=== PATIENT | male | born 1995 | race Caucasian/White ===

== ENCOUNTER 2021-08-12 10:10 | Emergency (ER) | payer OTHER, SELFPAY ==
[2021-08-12 10:24] VITALS: BP 142/81; PULSE 107; RESP 18; TEMP 37.1; O2SAT 98
--- NOTE | 2021-08-12 10:27 | ED.URI ---
HPI - URI/Sore Throat General Chief Complaint: Upper Respiratory Infection Stated Complaint: Fever,Headache,Body Aches Time Seen by Provider: 08/12/21 10:26 Source: patient and RN notes reviewed Mode of arrival: ambulatory Limitations: no limitations History of Present Illness HPI Narrative: 26-year-old male presented for complaint of headache, body aches and fever for 3 days. Temp at home up to 103 yesterday. He has had flu vaccine and Covid vaccines this year. He has been taking Alyx-[place] for symptoms. Denies associated sinus pressure/congestion, shortness of breath, wheezing, chest pain, vomiting, diarrhea, dizziness or ear pain. was ill about a week ago, tested negative for Covid. He endorses 3 months ago deviated septum surgery. MD elicited complaint: cough Related Data Home Medications Medication Instructions Recorded Confirmed No Home Medications 08/12/21 08/12/21 Allergies Allergy/AdvReac Type Severity Reaction Status Date / Time amoxicillin [From Amoxil] Allergy Unknown Verified 08/12/21 10:35 Review of Systems Review of Systems: CONSTITUTIONAL: Endorses fever denies malaise EYES: Denies visual changes, redness, or discharge ENT: Endorses swollen lymph node left submandibular, nontender; Denies rhinorrhea, congestion, sinus pain, otalgia, sore throat CARDIOVASCULAR: Denies chest pain, palpitations, edema RESPIRATORY: Denies cough, post nasal drainage, dyspnea GASTROINTESTINAL: Endorses mild nausea, denies abdominal pain, vomiting, diarrhea SKIN: Denies rash or itching MUSCULOSKELETAL: Endorses myalgia NEUROLOGIC: Endorses headache Exam Narrative: GENERAL: Well-appearing, no acute distress. HEAD: Normocephalic EYES: PERRLA, conjunctivae clear ENT: Mucous membranes moist. TM pearly rai with dull light reflex bilaterally; no tragal tenderness. Oropharynx erythematous without lesions or exudate, no drooling, no hoarseness, no trismus, uvula midline. NECK: Supple. No lymphadenopathy CHEST: Clear to auscultation, breath sounds equal. No wheezing, rhonchi, rales, or stridor. No respiratory distress, speaks in full sentences. HEART: Regular rate and rhythm. No murmur heard. SKIN: Warm, dry, no rash. NEURO: Alert and oriented x3. PSYCH: Normal mood and affect Course Course Emergency Course: Patient is aware of diagnosis, understands and agrees to treatment plan. Anticipatory guidance given. Patient agrees to follow-up as directed and is aware of reasons to seek care at the emergency department. Portions of this record may have been created with voice recognition software Level of Care: Express Care Visit Vital Signs Vital signs: Vital Signs Temperature 98.7 F 08/12/21 10:24 Pulse Rate 107 H 08/12/21 10:24 Respiratory Rate 18 08/12/21 10:24 Blood Pressure 142/81 H 08/12/21 10:24 Pulse Oximetry 98 08/12/21 10:24 Temperature 98.7 F 08/12/21 10:24 Pulse Rate 107 H 08/12/21 10:24 Respiratory Rate 18 08/12/21 10:24 Blood Pressure 142/81 H 08/12/21 10:24 Pulse Oximetry 98 08/12/21 10:24 reviewed MDM - URI/Sore Throat Differential Diagnosis Differential diagnosis: Likely upper respiratory infection, sinusitis and viral infection Lab Data Attestation: I reviewed the patient's lab results. Discharge Plan Discharge Clinical Impression: Viral infection Patient Disposition: Home, Self-Care Condition: Stable Instructions: Antibiotic Form, Influenza (ED), Upper Respiratory Infection (ED) Additional Instructions: Tylenol 1000mg every 8 hours as needed for body aches/fever Recommend Over the counter treatments and Zyrtec during the day, you can add Flonase for more severe sinus pressure/congestion Also, recommend symptomatic treatment includes: rest, fluids, and increase humidity of the air at home. Prescriptions: No Action No Home Medications RF: 0 Follow-up/Referrals: [place], [Primary Care Provider] - Stand Alone Form
== END 2021-08-12 10:59 | disposition home or self-care (01) ==
PROVIDERS: Emergency Provider Nurse Practitioner Family
DX: B34.9 Viral infection, unspecified (principal); Z20.822 Contact with and (suspected) exposure to COVID-19
CPT/HCPCS: 87426; 87804; 99203; C9803; G0463

== ENCOUNTER 2021-12-01 19:02 | Emergency (ER) | payer OTHER, SELFPAY ==
[2021-12-01 19:19] VITALS: BP 124/85; PULSE 96; RESP 18; TEMP 36.4; O2SAT 99
--- NOTE | 2021-12-01 19:22 | ED.URI ---
HPI - URI/Sore Throat General Chief Complaint: Upper Respiratory Infection Stated Complaint: sorethroat,cough,headache Time Seen by Provider: 12/01/21 19:22 Source: patient Mode of arrival: ambulatory Limitations: no limitations History of Present Illness HPI Narrative: Mr. Frazier is a 26-year-old male patient presenting to the clinic today with complaints of cough, sore throat, and headache x1 day. He reports that he is had no exposure to anybody with COVID or flu or strep. His is here today and also sick and being seen. MD elicited complaint: sore throat and nasal congestion Related Data Home Medications Medication Instructions Recorded Confirmed No Home Medications 08/12/21 12/01/21 Allergies Allergy/AdvReac Type Severity Reaction Status Date / Time amoxicillin [From Amoxil] Allergy Mild Hives Verified 12/01/21 19:10 Review of Systems Review of Systems: Pertinent positives per HPI. Patient denies any fever, chills, rash, visual changes, dizziness,shortness of breath, chest pain, palpitations, nausea, vomiting, diarrhea, constipation, abdominal pain, or any urinary issues. PMFSH Comments At the time of my signature, I reviewed and agree with the nursing past medical, surgical, social, and family history. There is no relevant family history pertinent to the patient complaint. Exam Narrative: General: Well-developed, overweight, in no apparent distress Head: Normocephalic, atraumatic Eyes: Pupils equally round and reactive to light bilaterally, EOM intact, sclera and conjunctive clear, no discharge, lids normal Ears: TMs intact and clear, ear canals clear, no drainage, grossly hearing normal. Nose: Nares patent, clear discharge, mild inflammation, no sinus tenderness. Mouth: Oropharynx without lesions or masses, good dentition, MMM. Postnasal drip Neck: Supple, trachea midline, no enlargement of anterior or posterior cervical nodes, no thyroid masses or goiter palpable. Cardio: Regular rate and rhythm, s1 and s2 normal, no murmur appreciated. Resp: Clear to auscultation bilaterally anteriorly and posteriorly, no rhonchi, rales, wheezing or rubs Course Course Emergency Course: Portions of this record may have been created with voice recognition software. Level of Care: Express Care Visit Vital Signs Vital signs: Vital Signs Temperature 36.4 C 12/01/21 19:19 Pulse Rate 96 12/01/21 19:19 Respiratory Rate 18 12/01/21 19:19 Blood Pressure 124/85 12/01/21 19:19 Pulse Oximetry 99 12/01/21 19:19 Oxygen Delivery Room Air 12/01/21 19:19 Temperature 36.4 C 12/01/21 19:19 Pulse Rate 96 12/01/21 19:19 Respiratory Rate 18 12/01/21 19:19 Blood Pressure 124/85 12/01/21 19:19 Pulse Oximetry 99 12/01/21 19:19 Oxygen Delivery Room Air 12/01/21 19:19 Vital signs reviewed MDM - URI/Sore Throat MDM Narrative Medical decision making narrative: At the time of assessment patient is resting comfortably on the exam table. COVID, flu, and strep testing was completed and were negative in the clinic. Strep testing was sent for culture. Explained to patient that he should retest for COVID in 2 days as his symptoms have only been going on today and his viral load may not be high enough for the rapid COVID testing to detect. He voiced understanding. Supportive measures were discussed with the patient he voiced understanding of discharge instructions and agrees to the treatment plan. Differential Diagnosis Differential diagnosis: Likely upper respiratory infection, otitis media, sinusitis, viral infection, bronchitis, influenza, pharyngitis and other (COVID) Discharge Plan Discharge Clinical Impression: Viral syndrome Patient Disposition: Home, Self-Care Condition: Stable Instructions: Viral Syndrome (ED) Additional Instructions: COVID, strep, and influenza testing were all negative in the clinic. We will send strep for culture Increase fluids and stay w
== END 2021-12-01 19:55 | disposition home or self-care (01) ==
PROVIDERS: Emergency Provider Nurse Practitioner Family
DX: B34.9 Viral infection, unspecified (principal); Z20.822 Contact with and (suspected) exposure to COVID-19
CPT/HCPCS: 87081; 87426; 87804; 87880; 99213; C9803; G0463

== ENCOUNTER 2021-12-03 11:11 | Emergency (ER) | payer OTHER, SELFPAY ==
[2021-12-03 11:20] VITALS: BP 135/85; PULSE 95; RESP 18; TEMP 37.6; O2SAT 100
--- NOTE | 2021-12-03 11:46 | ED.URI ---
HPI - URI/Sore Throat General Chief Complaint: Upper Respiratory Infection Stated Complaint: Cough,Sore Throat,Headache Time Seen by Provider: 12/03/21 11:46 Source: patient Mode of arrival: ambulatory Limitations: no limitations History of Present Illness HPI Narrative: 26-year-old male presents with complaint of cough, sore throat, headaches, body aches, fatigue for 3 days. Reports temp this a.m. was 101.2. Denies chest pain and shortness of breath. Denies nausea vomiting diarrhea. States throat just hurts really bad . Patient seen here when symptoms first started and COVID, influenza and strep test were all negative. Systems reviewed and negative except as noted above. Related Data Allergies Allergy/AdvReac Type Severity Reaction Status Date / Time amoxicillin [From Amoxil] Allergy Mild Hives Verified 12/03/21 11:49 Review of Systems Review of Systems: CONSTITUTIONAL: Reports fever and fatigue. Denieschills, or sweats. EYES: Denies visual changes, redness, or discharge. ENT reports rhinorrhea, congestion, sore throat. Denies otalgia. CARDIOVASCULAR: Denies chest pain, palpitations, or edema. RESPIRATORY: Reports cough. Denies dyspnea. GASTROINTESTINAL: Denies abdominal pain, nausea, vomiting, or diarrhea. GENITOURINARY: Denies dysuria or hematuria. SKIN: Denies rash or itching. MUSCULOSKELETAL: Denies back pain, joint pain, or myalgia. NEUROLOGIC: Denies headache, numbness, or weakness. PSYCHIATRIC: Denies anxiety or depression. All other systems reviewed are negative, except as documented in HPI. PMFSH Comments At time of signature, agree with nursing past medical, surgical, social and family history. There is no relevant family history pertinent to the presenting complaint. Exam Narrative: GENERAL: This is a well-nourished, well-developed patient, in no apparent distress. HEAD: normocephalic, atraumatic. EYES: PERRL. Sclera clear/white. Vision is grossly intact. EARS: External ears normal, auditory canals clear and without drainage, TMs normal without perforation. Hearing grossly intact. NOSE: External nose normal with no obvious nasal discharge, nares without redness, no rhinorrhea. THROAT: Mucous membranes moist, erythema to posterior pharynx. NECK: Neck supple, non-tender without lymphadenopathy, masses or thyromegaly. CARDIOVASCULAR: Regular rate and rhythm without murmurs, gallops, or rubs. RESPIRATORY: Clear to auscultation. Breath sounds equal bilaterally. No wheezes, rales, or rhonchi. SKIN: warm, Dry, intact with no suspicious lesions or rash, good texture and turgor. NEURO: awake, alert, and oriented to person, place and time. There were no obvious focal neurologic abnormalities. EXTREMITIES: Normal range of motion to all extremities. Course Course Level of Care: Express Care Visit Vital Signs Vital signs: Vital Signs Temperature 37.6 C 12/03/21 11:20 Pulse Rate 95 12/03/21 11:20 Respiratory Rate 18 12/03/21 11:20 Blood Pressure 135/85 12/03/21 11:20 Pulse Oximetry 100 12/03/21 11:20 Oxygen Delivery Room Air 12/03/21 11:20 Temperature 37.6 C 12/03/21 11:20 Pulse Rate 95 12/03/21 11:20 Respiratory Rate 18 12/03/21 11:20 Blood Pressure 135/85 12/03/21 11:20 Pulse Oximetry 100 12/03/21 11:20 Oxygen Delivery Room Air 12/03/21 11:20 Reviewed MDM - URI/Sore Throat MDM Narrative Medical decision making narrative: Patient is aware of diagnosis, understands and agrees to treatment plan. Anticipatory guidance given. Patient agrees to follow-up as directed and is aware of reasons to seek care at the emergency department. Portions of this record may have been created with voice recognition software Differential Diagnosis Differential diagnosis: Likely upper respiratory infection, sinusitis, viral infection, pharyngitis and other (COVID-19) Discharge Plan Discharge Clinical Impression: COVID-19 Patient Disposition: Home, Self-Care Conditio
== END 2021-12-03 12:03 | disposition home or self-care (01) ==
PROVIDERS: Emergency Provider Nurse Practitioner Family
DX: U07.1 COVID-19 (principal)
CPT/HCPCS: 87426; 99213; C9803; G0463